=== PATIENT | male | born 1945 | race Caucasian/White ===

== ENCOUNTER → 2021-07-26 | Day surgery (SDC) | payer BC, MEDICARE ==
[~2021-07-26] MED LIST: CLOPIDOGREL75 MG PO; DIABETA 5 MG TAB5 MG PO; FLOMAX 0.4 MG0.4 MG PO; GABAPENTIN800 MG PO; HYDROCODON-ACE1 EAC6 PO; IPRAT-ALBUT 0.5-3 ML INH; OZEMPIC1 MG/0.71 SQ
== END | disposition home or self-care (01) ==
LOC: OR 06:00
DX: J98.4 Other disorders of lung (principal); J44.9 Chronic obstructive pulmonary disease, unspecified; I10 Essential (primary) hypertension; E11.51 Type 2 diabetes mellitus with diabetic peripheral angiopathy without gangrene; K21.9 Gastro-esophageal reflux disease without esophagitis; F17.210 Nicotine dependence, cigarettes, uncomplicated; Z79.02 Long term (current) use of antithrombotics/antiplatelets; Z79.84 Long term (current) use of oral hypoglycemic drugs; Z79.899 Other long term (current) drug therapy
CPT/HCPCS: 76000; 82962; J2704; J7120

== ENCOUNTER → 2021-08-08 | Outpatient (CLI) | payer BC, MEDICARE ==
[~2021-08-08] MED LIST changes: +ALBUTEROL INHALER INH; +OMEPRAZOLE20 M1 PO
[2021-08-08 09:19] LABS: HEMOGLOBIN 12.2 gm/dl (14.0-17.5); RED BLOOD COUNT 4.28 M/UL (4.20-5.50); WHITE BLOOD COUNT 10.8 K/UL (4.5-11.0)
== END | disposition home or self-care (01) ==
LOC: CT 08:41
PROVIDERS: Radiology Diagnostic Radiology
DX: R91.8 Other nonspecific abnormal finding of lung field (principal); Z53.8 Procedure and treatment not carried out for other reasons; J44.9 Chronic obstructive pulmonary disease, unspecified; K21.9 Gastro-esophageal reflux disease without esophagitis; M19.90 Unspecified osteoarthritis, unspecified site; Z79.899 Other long term (current) drug therapy
CPT/HCPCS: 36415; 82962; 85027; 85610

== ENCOUNTER → 2021-08-10 | Outpatient (CLI) | payer BC, MEDICARE | LOC: HEART 5 10:38 | DX: J44.9 Chronic obstructive pulmonary disease, unspecified (principal) | CPT/HCPCS: 94060; 94729 ==

== ENCOUNTER → 2021-08-16 | Outpatient (CLI) | payer BC, MEDICARE | LOC: KOH-I 09:53 | DX: R91.8 Other nonspecific abnormal finding of lung field (principal) | CPT/HCPCS: 71250 ==

== ENCOUNTER → 2021-08-21 | Day surgery (SDC) | payer BC, MEDICARE | END | disposition home or self-care (01) | LOC: OR 10:48 | DX: C34.31 Malignant neoplasm of lower lobe, right bronchus or lung (principal); R59.0 Localized enlarged lymph nodes; J44.9 Chronic obstructive pulmonary disease, unspecified; K21.9 Gastro-esophageal reflux disease without esophagitis; E11.51 Type 2 diabetes mellitus with diabetic peripheral angiopathy without gangrene; M19.90 Unspecified osteoarthritis, unspecified site; I11.9 Hypertensive heart disease without heart failure; F17.210 Nicotine dependence, cigarettes, uncomplicated; Z79.82 Long term (current) use of aspirin; Z79.4 Long term (current) use of insulin; Z79.899 Other long term (current) drug therapy | CPT/HCPCS: 71045; 76000; 82962; J1100; J2405; J2704; J3010 ==

== ENCOUNTER → 2021-09-06 | Outpatient (CLI) | payer BC, MEDICARE | LOC: MRI 10:00 | DX: C34.31 Malignant neoplasm of lower lobe, right bronchus or lung (principal); Z12.89 Encounter for screening for malignant neoplasm of other sites | CPT/HCPCS: 70553; A9577 ==